=== PATIENT | female | born 1945 | race Caucasian/White ===

== ENCOUNTER 2016-10-17 18:53 | Emergency (ER) | payer MEDICARE ==
[2016-10-17] MEDS ORDERED: Meclizine TAB* 12.5 MG PO ONE ×2 (19:07→22:08)
--- NOTE | 2016-10-17 19:41 | RAD ---
INDICATION: Trauma to the posterior skull COMPARISON: None. TECHNIQUE: Contiguous axial sections of the brain were obtained from the skull base to the vertex without contrast. FINDINGS: The ventricles, cisterns and sulci are within normal limits. The melvin-white matter differentiation is adequately maintained and there is no sulcal effacement. No significant focal abnormality or mass effect is present. There is no evidence for intracranial hemorrhage. There is coarse atherosclerotic calcification of the bilateral vertebral arteries and to a lesser extent the petrous carotid arteries. No significant focal osseous abnormality is present. The visualized portion of the paranasal sinuses and mastoid air cells appear clear. IMPRESSION: Calcified arteriosclerosis in this otherwise nonacute CT of the brain.
[2016-10-17] MEDS ORDERED: Ondansetron INJ* 2 MG/ML VIAL IV ONE (19:44)
[2016-10-17] MEDS ORDERED: Ondansetron ODT TAB* 4 MG PO ONE (22:08)
[2016-10-17 22:39] VITALS: BP 154/69
--- NOTE | 2016-10-17 22:59 | ED ---
Maria E Bowman Seung-Jae, scribed for Kareem Aguilar MD on 10/17/16 at 1906 . Head Injury - HPI Summary HPI Summary: Pt is a 71 y/o F who presents to ED s/p head injury. At 1830 today she was at the park and her dog's leash was wrapped around her legs, causing her to strike her head on the ground. Negative LOC. Pt c/o dizziness characterized as room spinning, nausea and one episode of stool incontinence s/p incident. Additionally states "my head feels buzzy." Sx aggravated by opening her eyes and movement, alleviated by nothing. Denies any pain including head and neck pain. Is not on blood thinners. - History Of Current Complaint Chief Complaint: EDHeadInjury Stated Complaint: FALL/HEAD INJURY Time Seen by Provider: 10/17/16 19:03 Hx Obtained From: Patient Mechanism Of Injury: Fall From A Standing Position Severity Currently: None Pain Intensity: 0 Pain Scale Used: 0-10 Numeric Aggravating Factor(s): Movement, Other: - Opening eyes Alleviating Factor(s): Other: - Nothing Associated Signs And Symptoms: Vomiting, Other: - Stool incontinence (1x), dizziness, "head feels buzzy" - Allergies/Home Medications Allergies/Adverse Reactions: Allergies Allergy/AdvReac Type Severity Reaction Status Date / Time Sulfamethoxazole Allergy Unknown Verified 10/17/16 19:15 w/Trimethoprim Reaction [From Bactrim] Details PMH/Surg Hx/FS Hx/Imm Hx Cardiovascular History: Reports: Hx Hypertension Musculoskeletal History: Denies: Hx Osteoporosis - Cancer History Hx Chemotherapy: No Hx Radiation Therapy: No Infectious Disease History: Denies: Traveled Outside the [place] in Last 30 Days - Family History Known Family History: Positive: Hypertension - Social History Alcohol Use: None Hx Substance Use: No Substance Use Type: Reports: None Smoking Status (MU): Former Smoker Review of Systems Positive: Other - "my head feels buzzy" Positive: Vomiting Positive: incontinence - Stool incontinence 1x Negative: Arthralgia - Denies neck pain Neurological: Other - Dizziness (room spinning) Negative: Headache All Other Systems Reviewed And Are Negative: Yes Physical Exam Triage Information Reviewed: Yes Vital Signs On Initial Exam: Initial Vitals Temp Pulse Resp BP Pulse Ox 97.2 F 60 22 162/71 97 10/17/16 18:55 10/17/16 18:55 10/17/16 18:55 10/17/16 18:55 10/17/16 18:55 Vital Signs Reviewed: Yes Appearance: Positive: Well-Appearing, No Pain Distress Skin: Positive: Warm, Skin Color Reflects Adequate Perfusion, Dry Head/Face: Positive: Normal Head/Face Inspection, Other - No signs of trauma, nontender ENT: Positive: Normal ENT inspection, TMs normal Neck: Positive: Supple, Nontender Respiratory/Lung Sounds: Positive: Clear to Auscultation, Breath Sounds Present Cardiovascular: Positive: RRR Abdomen Description: Positive: Nontender, Soft Bowel Sounds: Positive: Present Musculoskeletal: Positive: Normal Neurological: Positive: Normal Diagnostics - Vital Signs Vital Signs Temp Pulse Resp BP Pulse Ox 10/17/16 18:55 97.2 F 60 22 162/71 97 - Laboratory Lab Statement: Any lab studies that have been ordered have been reviewed, and results considered in the medical decision making process. - CT Brain CT CT Interpretation: No Acute Changes - Calcified arteriosclerosis in this otherwise nonacute CT of the brain. CT Interpretation Completed By: Radiologist Re-Evaluation - Re-Evaluation First Eval Re-Evaluation Time: 21:52 Change: Improved Comment: Pt still feels dizzy. Second Eval Re-Evaluation Time: 22:08 Change: Improved Comment: Discussed D/C plan with the pt. Third Eval Re-Evaluation Time: 22:00 Comment: Discussed results with pt. Head Injury Course/Dx Course Of Treatment: Ms. Banks came in with a primary C/O of vertigo after some relatively minor hear trauma. Her W/U was WNL and she improved with meclizine. I will treat her with same. - Diagnoses Provider Diagnoses: Vertigo, Concussion Discharge - Discharge Plan Condition: Stable Disposition: HOME Prescriptions: Meclizine TAB* [Antivert 12.5 TAB*] 25 mg PO TID PRN #20 tab PRN Reason: Dizziness Ondansetron ODT TAB* [Zofran Odt TAB*] 4 mg PO Q6H PRN #20 tab.odt PRN Reason: Nausea/Vomiting Patient Education Materials: Vertigo (ED), Concussion (ED) Referrals: Олег Suero MD [Primary Care Provider] - 3 Days The documentation as recorded by the scribMaria E ojeda Seung-Jae accurately reflects the service I personally performed and the decisions made by , Kareem Aguilar MD.
== END 2016-10-17 22:38 | disposition home or self-care (01) ==
LOC: ED 18:53
DX: R42 Dizziness and giddiness (principal); S06.0X0A Concussion without loss of consciousness, initial encounter; W01.198A Fall on same level from slipping, tripping and stumbling with subsequent striking against other object, initial encounter; Y93.K1 Activity, walking an animal; Y92.9 Unspecified place or not applicable; I10 Essential (primary) hypertension; Z88.2 Allergy status to sulfonamides; Z87.891 Personal history of nicotine dependence
CPT/HCPCS: 70450; 96374; 99282; A9270-GY; J2405

== ENCOUNTER 2019-04-13 13:53 | Emergency (ER) | payer MEDICARE ==
[2019-04-13 15:11] LABS: ABS Basophils 0.1 10^3/ul (0-0.2); ABS Eosinophils 0.3 10^3/ul (0-0.6); ABS Lymphocytes 2.3 10^3/ul (1.0-4.8); ABS Monocytes 0.7 10^3/ul (0-0.8); ABS Neutrophils 5.4 10^3/ul (1.5-7.7); Eosinophil % 3.9 %; Hematocrit 37 % (35-47); Lymphocyte % 26.4 %; Mean Corpuscular HGB Conc 35 g/dL (31-36); Mean Corpuscular Hemoglobin 31 pg (27-31); Mean Corpuscular Volume 87 fL (80-97); Mean Platelet Volume 8.4 fL (7.4-10.4); Platelet Count 226 10^3/uL (150-450); Red Blood Count 4.25 10^6 /uL (3.70-4.87); Red Cell Distribution Width 13 % (10-15); White Blood Count 8.8 10^3/uL (3.5-10.8)
--- NOTE | 2019-04-13 15:26 | ED ---
HPI Febrile Illness - HPI Summary HPI Summary: Pt is a 73 y/o F presenting to the ED with a chief complaint of a rash on her forehead. She developed sx including fever, weakness, fatigue, cough w/ phlegm, diaphoresis, decreased appetite, and some constipation, many weeks ago. She states she went to her primary care provider and saw an [employer]PECT[employer] who dxed her with the flu but did not do a flu swab. Over the past few days she noted a few spots on her forehead, two of which she opened, and now has covered with bandaids. She denies nausea/vomiting and abd pain. She was Rxed Amoxicillin and Azithromycin, and she has only taken the Amoxicillin. - History of Current Complaint Chief Complaint: EDGeneral Time Seen by Provider: 04/13/19 14:52 Hx Obtained From: Patient Onset/Duration: Started Days Ago, Still Present Timing: Constant, Lasting Days Initial Severity: Mild Current Severity: None Pain Intensity: 0 Pain Scale Used: 0-10 Numeric Aggravating Factors: Nothing Alleviating Factors: Nothing Associated Signs and Symptoms: Cough, Diaphoresis, Rash, Weakness - Allergy/Home Medications Allergies/Adverse Reactions: Allergies Allergy/AdvReac Type Severity Reaction Status Date / Time sulfamethoxazole Allergy Unknown Verified 04/13/19 14:03 [From Bactrim] Reaction Details trimethoprim [From Bactrim] Allergy Unknown Verified 04/13/19 14:03 Reaction Details PMH/Surg Hx/FS Hx/Imm Hx Previously Healthy: Yes Cardiovascular History: Reports: Hx Hypertension Musculoskeletal History: Denies: Hx Osteoporosis - Cancer History Hx Chemotherapy: No Hx Radiation Therapy: No - Surgical History Surgery Procedure, Year, and Place: partial hysterectomy Infectious Disease History: No Infectious Disease History: Denies: Traveled Outside the [place] in Last 30 Days - Family History Known Family History: Positive: Hypertension - Social History Alcohol Use: None Hx Substance Use: No Substance Use Type: Reports: None Smoking Status (MU): Former Smoker Review of Systems Positive: Fever, Fatigue, Skin Diaphoresis Positive: Cough Positive: Other - slight constipation, has not eaten much. Negative: Abdominal Pain, Vomiting, Nausea Positive: Rash Positive: Weakness All Other Systems Reviewed And Are Negative: Yes Physical Exam - Summary Physical Exam Summary: Constitutional: Well-developed, Well-nourished, Alert. (-) Distressed Skin: Warm, Dry. Small erythematous papule to the middle forehead. HENT: Normocephalic; Atraumatic Eyes: Conjunctiva normal Neck: Musculoskeletal ROM normal neck. (-) JVD, (-) Stridor, (-) Nuchal rigidity Cardio: Rhythm regular, rate normal, Heart sounds normal; Intact distal pulses; Radial pulses are 2+ and symmetric. (-) Murmur Pulmonary/Chest wall: Effort normal. (-) Respiratory distress, (-) Wheezes, (-) Rales Abd: Soft, (-) tenderness, (-) Distension, (-) Guarding, (-) Rebound Musculoskeletal: (-) Edema Lymph: (-) Cervical adenopathy Neuro: Alert, Oriented x3 Psych: Mood and affect Normal Triage Information Reviewed: Yes Vital Signs On Initial Exam: Initial Vitals Temp Pulse Resp BP Pulse Ox 99.2 F 69 18 179/102 97 04/13/19 13:55 04/13/19 13:55 04/13/19 13:55 04/13/19 13:55 04/13/19 13:55 Vital Signs Reviewed: Yes Procedures - Sedation Patient Received Moderate/Deep Sedation with Procedure: No Diagnostics - Vital Signs Vital Signs Temp Pulse Resp BP Pulse Ox 04/13/19 13:55 99.2 F 69 18 179/102 97 - Laboratory Lab Results: Lab Results 04/13/19 Range/Units 15:05 WBC 8.8 (3.5-10.8) 10^3/uL RBC 4.25 (3.70-4.87) 10^6 /uL Hgb 13.0 (12.0-16.0) g/dL Hct 37 (35-47) % MCV 87 (80-97) fL MCH 31 (27-31) pg MCHC 35 (31-36) g/dL RDW 13 (10-15) % Plt Count 226 (150-450) 10^3/uL MPV 8.4 (7.4-10.4) fL Neut % (Auto) 61.1 % Lymph % (Auto) 26.4 % [place] % (Auto) 7.6 % Eos % (Auto) 3.9 % Baso % (Auto) 1.0 % Absolute Neuts (auto) 5.4 (1.5-7.7) 10^3/ul Absolute Lymphs (auto) 2.3 (1.0-4.8) 10^3/ul Absolute Monos (auto) 0.7 (0-0.8) 10^3/ul Absolute Eos (auto) 0.3 (0-0.6) 10^3/ul Absolute Basos (auto) 0.1 (0-0.2) 10^3/ul Absolute Nucleated RBC 0.0 10^3/ul Nucleated RBC % 0.0 Result Diagrams: 04/13/19 15:05 04/13/19 15:05 Lab Statement: Any lab studies that have been ordered have been reviewed, and results considered in the medical decision making process. - Radiology CXR Radiology Interpretation Completed By: Radiologist Summary of Radiographic Findings: No active cardiopulmonary disease is noted. ED physician has reviewed this report. - EKG 1507 Cardiac Rate: Bradycardia - 53bpm EKG Rhythm: Sinus Bradycardia ST Segment: Normal Ectopy: None Summary of EKG Findings: An EKG at 1507 reveals sinus bradycardia at 53bpm, nml axis, nml intervals. No STEMI. No acute changes. ED physician has reviewed and interpreted this EKG. Course/Dx - Course Course Of Treatment: 69-year-old female with recent URI percent and concern for rash and fatigue. - physical exam w well-appearing, elderly female, lungs clear bilaterally. Forehead rash likely consistent with pimple. Labs notable for no leukocytosis, chest x-ray without pneumonia. Patient afebrile in the ED. Unclear patient was initially flu positive or had pneumonia, but advised to continue full course of antibiotics and follow up with her primary care doctor. - advised if she has itching she can try hydrocortisone cream - Diagnoses Provider Diagnoses: Cough, Fatigue Discharge ED - Sign-Out/Discharge Documenting (check all that apply): Patient Departure - Discharge Plan Condition: Stable Disposition: HOME Patient Education Materials: Upper Respiratory Infection (ED) Referrals: Олег Suero MD [Primary Care Provider] - Additional Instructions: You were seen in the emergency department for a cough and fever. Your x-ray did not show pneumonia. Please continue taking her medications as prescribed. Please follow up with your primary care doctor in next 2-3 days and return to emergency department for breathing, continued fevers, chest pain, passing out, worsening or concerning symptoms. It was a pleasure taking care of you today. - Billing Disposition and Condition Condition: STABLE Disposition: Home - Attestation Statements Document Initiated by Cuauhtemociblynette: Yes Documenting Scribe: Patrica Ocampo Provider For Whom Nataly is Documenting (Include Credential): Zach Mcmahon MD. Scribe Attestation: Patrica Bowman, scribed for Zach Mcmahon MD. on 04/13/19 at 1622. Scribe Documentation Reviewed: Yes Provider Attestation: The documentation as recorded by the scribe, Patrica Ocampo accurately reflects the service I personally performed and the decisions made by , Zach Mcmahon MD. Status of Scribe Document: Viewed
[2019-04-13 15:30] LABS: Albumin 4.2 g/dL (3.2-5.2); Albumin/Globulin Ratio 1.5 (1-3); BUN/Creatinine Ratio 25.3 (8-20); Calcium 9.2 mg/dL (8.6-10.3); EGFR African American 81.1 (>60); Globulin 2.8 g/dL (2-4); Potassium 4.4 mmol/L (3.5-5.0); Total Bilirubin 0.6 mg/dL (0.2-1.0)
[2019-04-13 16:34] VITALS: BP 150/75
== END 2019-04-13 16:32 | disposition home or self-care (01) ==
LOC: ED 13:53
DX: R05 Cough (principal); R53.83 Other fatigue; R06.02 Shortness of breath; R21 Rash and other nonspecific skin eruption; R00.1 Bradycardia, unspecified; I10 Essential (primary) hypertension; Z88.2 Allergy status to sulfonamides; Z87.891 Personal history of nicotine dependence
CPT/HCPCS: 36415; 71046; 80053; 85025; 93005; 99282